=== PATIENT | male | born 1975 | race Caucasian/White ===

== ENCOUNTER 2024-09-19 11:02 | Emergency (ER) | payer MEDICAID ==
[~2024-09-19] VITALS: Ht 172.7 cm; Wt 78.6 kg
[2024-09-19] MEDS: HYDROcodone/acetaminophen 10/325mg tab PO ONE (11:16)
--- NOTE | 2024-09-19 12:10 | RADIOLOGY REPORT ---
Indication: Finger Pain LEFT 2ND DIGIT Technique: 3 views of the left hand Comparison: None FINDINGS/IMPRESSION: Tiny ossific fragment at the 2nd DIP joint measuring 2 mm, likely a small chip fracture from unknown donor site. There is surrounding soft tissue edema.
[2024-09-19] MEDS ORDERED: ketorolac trometh 15mg/ml vial 15 MG/ML ML IV ONE (13:30)
[2024-09-19] MEDS: ketorolac trometh 30MG/ML vial 30 MG/ML VIAL IV ONE (13:54)
[2024-09-19] MEDS: ceFAZolin 2gm/dext,iso 50mL 50 ML IV ONE (13:55)
[2024-09-19] MEDS ORDERED: HYDR-3965 PO (15:17)
[2024-09-19] MEDS ORDERED: CEPH-585 PO (15:17)
[2024-09-19] MEDS ORDERED: IBUP-1984 PO (15:17)
--- NOTE | 2024-09-19 15:23 | Physician Documentation ---
History of Present Illness General Chief Complaint: Laceration Stated Complaint: FINGER LAC Time Seen by MD: 12:34 History of Present Illness Initial Comments [id number] 41-year-old male who presents to emergency department with the acute injury to his left index finger with a chop saw. He has got extensive tissue avulsion to the volar surface of the distal pulp. It is grossly neurologically intact. Bleeding was controlled. Medication Reconciliation Allergies: Coded Allergies: No Known Allergies (Unverified , 09/19/24) Scheduled Cephalexin*Monohydrate* (Keflex*), 1 CAP PO TID Ibuprofen* (Motrin*), 400 MG PO Q6H Scheduled PRN Hydrocodone Bit/Acetaminophen 5/325 MG ([place] 5/325 MG), 1-2 TAB PO Q4-6 hours PRN for pain Review of Systems All Other Systems at this time: Reviewed and Negative Musculoskeletal Left index distal phalanx injury Physical Exam Physical Exam Vital Signs: RN Vital Signs have been reviewed: Yes, Temperature: 98.5, Source: Temporal, Heart Rate: 78, Respiratory Rate: 18, BP: 144/87, Pulse Oximetry: 98, Weight: 78.600 Oxygen Flow Rate: 0 General Appearance: alert, mild distress Head: normal inspection Face: normal inspection Pupils/EOM/Fundus: PERRLA Respiratory: no respiratory distress Cardiovascular: regular rate, rhythm Extremities: normal range of motion, normal capillary refill, other (Extensive loss of architecture of the distal phalanx on the volar side. Proximally 1 cm by 0.5 cm deep tissue avulsion. Normal range of motion without suspected foreign body) Psychiatric: normal mood/affect Skin: normal color, warm/dry Lymphatic: no adenopathy Progress Results/Orders Results/Orders Completed Orders - ELY SAVAGE Cefazolin 2gm/Dext,Iso 50ml (Cefazolin 2 (09/19/24 13:30) Ketorolac Trometh 30mg/Ml Vial (Toradol (09/19/24 13:35) Medications Received in ER Medications (Trade) Dose Ordered Sig/Robert Route PRN Reason Start Time Stop Time Status Last Admin Dose Admin ([place] 10/325mg tab) 1 tab ONCE ONCE PO 09/19/24 11:15 09/19/24 11:16 DC 09/19/24 11:16 1 TAB Cefazolin Sodium/ Dextrose 50 ml @ 100 mls/hr ONCE ONCE IV 09/19/24 13:30 09/19/24 13:59 DC 09/19/24 13:55 100 MLS/HR (Toradol inj. 30mg/ml) 30 mg ONCE ONCE IV 09/19/24 13:35 09/19/24 13:36 DC 09/19/24 13:54 30 MG Vital Signs 09/19/24 09/19/24 09/19/24 09/19/24 11:06 11:16 12:38 13:54 Temp 98.5 Pulse 82 Resp 16 20 20 20 B/P (MAP) 166/109 Pulse Ox 98 O2 Flow Rate 0 09/19/24 14:01 Temp 98.5 Pulse 78 Resp 18 B/P (MAP) 144/87 (106) Pulse Ox 98 O2 Flow Rate 0 Medical Decision Making Differential Diagnosis Presents to the emergency department for evaluation of left index finger injury from a chop saw. Extensive tissue damage that does not involve the joint. X- ray imaging shows a tiny chip fracture. Patient treated as open fracture a 2 g Ancef IV. Pain management and aggressive irrigation. The wound was dressed with Xeroform a tube gauze. Referred to orthopedist for further management. Out patient pain medicine and antibiotic provided. Departure Disposition: HOME / SELF CARE / HOMELESS Impression: Primary Impression: Laceration of left index finger Qualified Codes: S61.211A - Laceration without foreign body of left index finger without damage to nail, initial encounter Additional Impression: Open fracture of phalanx of left index finger Qualified Codes: S62.631B - Displaced fracture of distal phalanx of left index finger, initial encounter for open fracture Condition: Improved Discharge Instructions: Laceration Care, Adult, [place] Additional Instructions: Today in the emergency department had x-rays obtained which showed a tiny tip fracture. You received IV antibiotics and pain medicine for open fracture. The wound was aggressively cleansed and dressed. May follow up appointment with a local orthopedist for follow up. I have sent prescriptions for pain management and antibiotic to your local pharmacy. Thank you have his in the emergency department of [facility]. Referrals: NO PRIMARY CARE PROVIDER (PCP) Prescriptions Ibuprofen* (Motrin*) 400 Mg Tablet 400 MG PO Q6H for 10 Days, #30 TAB Prov: ELY SAVAGE PAC 09/19/24 Hydrocodone Bit/Acetaminophen 5/325 MG ([place] 5/325 MG) 5 Mg/325 Mg Tablet 1-2 TAB PO Q4-6 hours PRN for pain, #20 TAB Prov: ELY SAVAGE 09/19/24 Cephalexin*Monohydrate* (Keflex*) 500 Mg Capsule 1 CAP PO TID for 10 Days, #30 CAP Prov: ELY SAVAGE 09/19/24 Education Educated: Patient Educated regarding: diagnosis, treatment Signature Scribe Signature: . Attestation: . ELY SAVAGE Sep 19, 2024 15:23
[2024-09-19 15:57] VITALS: BP 138/82; PULSE 74; RESP 16; TEMP 98.5; O2SAT 98
== END 2024-09-19 15:59 | disposition home or self-care (01) ==
LOC: ER 11:03
DX: S62.631A Displaced fracture of distal phalanx of left index finger, initial encounter for closed fracture (principal); W31.2XXA Contact with powered woodworking and forming machines, initial encounter; Y93.89 Activity, other specified; Y92.89 Other specified places as the place of occurrence of the external cause; Y99.8 Other external cause status
CPT/HCPCS: 73140; 96365; 96375; 99284; A6222; J0690; J1885